=== PATIENT | male | born 1990 | race Hispanic/Latino ===

== ENCOUNTER 2024-10-31 04:44 | Emergency (ER) | payer BC, SELFPAY ==
[2024-10-31 04:46] VITALS: BP 150/108
[2024-10-31 05:06] VITALS: BMI 30.8
[2024-10-31 05:14] VITALS: BP 155/97
[2024-10-31] MEDS: DECADRON 10 MG PO (05:19)
--- NOTE | 2024-10-31 06:23 | ED.GENMED ---
History of Present Illness
<Dhruv Becker, DO - Last Filed: 10/31/24 07:08>
General
Chief Complaint: Allergic Reaction
Source: patient
Time Seen by Provider: 10/31/24 05:04
Nursing documentation reviewed up to this point in time: agreed with
History of Present Illness
History of Present Illness:
Note:
CHIEF COMPLAINT(S)
Sore throat and difficulty swallowing.
HISTORY OF PRESENT ILLNESS
The patient is a 34-year-old male who reports waking up with difficulty swallowing and subsequently noticing in the mirror that his uvula was swollen and had a red spot at the bottom. The patient describes the uvula as 'really swollen.� There were
no reports of coughing, respiratory distress, or significant pain, although the patient did express discomfort due to the swelling.
SOCIAL HISTORY
The patient reports smoking, although the specific type of smoking product and frequency was not detailed.
REVIEW OF SYSTEMS
- Throat: Sore throat, difficulty swallowing.
- Respiratory: Denied trouble breathing.
PHYSICAL EXAM
General: Alert, no acute distress.
Skin: Warm, dry.
Head: Normocephalic, atraumatic.
Neck: Supple, trachea midline.
Eye Ears, nose, mouth and throat: Oral mucosa moist. Uvula is swollen with a red spot at the bottom.
Cardiovascular: Normal peripheral perfusion, No edema.
Respiratory: Respirations are non-labored.
Gastrointestinal: Abdomen nondistended.
Back: Normal alignment, normal range of motion.
Musculoskeletal: Normal Range of Motion, normal strength.
Neurological: Alert and oriented to person, place, time, and situation, no focal neurological deficit observed.
Psychiatric: Cooperative, appropriate mood & affect.
PLAN
The plan is to administer steroids to reduce the swelling of the uvula and provide symptomatic relief for the patient.
DIFFERENTIAL DIAGNOSIS
The Differential Diagnosis includes, in no particular order and is not limited to:
- Viral pharyngitis
- Uvulitis
- Allergic reaction
- Bacterial pharyngitis
- Mononucleosis
- Peritonsillar abscess
- Epiglottitis
- GERD with throat involvement
- Upper respiratory tract infection
- Tonsillitis
Disposition:
SUMMARY OF ENCOUNTER
The patient is a 34-year-old male who presented to the emergency department with a swollen uvula, known as uvulitis. He reported no trauma, recent illness, chest pain, or shortness of breath. The management involved administering steroids to reduce
the swelling and provide symptomatic relief, given the absence of respiratory distress or significant pain.
ASSESSMENT
The patient is likely experiencing uvulitis without signs of a more severe underlying condition as he demonstrated no respiratory compromise or significant distress.
PLAN
The plan is to administer steroids to address the swollen uvula and monitor for symptomatic relief. Additional treatment or investigation may be considered if symptoms persist or escalate.
PATIENT EDUCATION AND COUNSELING
The patient was advised about the nature of uvulitis, the purpose of steroid treatment, and was informed to seek medical attention if symptoms worsen or if new symptoms develop, such as difficulty breathing or increased pain.
FOLLOW-UP INSTRUCTIONS
The patient is to follow up with their primary care provider for re-evaluation and further management if symptoms do not improve or worsen.
MEDICATION RECONCILIATION
The patient was prescribed steroids for uvulitis to be taken as directed to reduce uvular swelling.
MEDICAL DECISION MAKING
1. Number and Complexity of Problems Addressed: Infection affecting care with a focus on uvulitis and absence of other concerning symptoms.
2. Data:
- Category 1: No additional records or external data were reviewed.
3. Risk: Prescription medication, specifically steroids, was prescribed for outpatient management with instructions for follow-up care. The decision was made to manage the condition on an outpatient basis as the patient was stable and agreeable with
discharge.
DIAGNOSIS
- Uvulitis (ICD-10 code: J39.3)
Phy Exam
<Dhruv Becker DO - Last Filed: 10/31/24 07:08>
ENT Exam
ENT Exam: other (Large uvula consistent with uvulitis)
<Erwin Hernandez DO - Last Filed: 11/01/24 16:46>
Physical Exam
Physical Exam:
.
Course
<Dhruv Becker, DO - Last Filed: 10/31/24 07:08>
Orders/Labs/Results
Orders:
Orders
10/31/24 05:04
Dexamethasone Pf [Decadron] 10 mg PO NOW STA
10/31/24 06:24
Neck Soft Tissue [CR Soft Tissue Neck ] Urgent
Comment:
Reason For Exam: throat pain
10/31/24 06:36
Rapid Strep Group A Urgent
OPAL Source: Throat/Pharynx
Specimen Description:
Date Specimen was Collected: 10/31/24
Time Specimen was Collected: 06:34
10/31/24 07:54
Amoxicillin [Amoxil] 500 mg PO NOW STA
Vital Signs
Initial and Last Documented VS:
Initial Vital Signs
Temp Pulse Resp BP Pulse Ox
97.8 F 57 16 150/108 99
10/31/24 04:46 10/31/24 04:46 10/31/24 04:46 10/31/24 04:46 10/31/24 04:46
Last Documented Vital Signs
Temp Pulse Resp BP Pulse Ox
97.8 F 65 16 138/100 100
10/31/24 04:46 10/31/24 07:00 10/31/24 07:00 10/31/24 07:00 10/31/24 07:00
<Erwin Hernandez, DO - Last Filed: 11/01/24 16:46>
Orders/Labs/Results
Orders:
Orders
10/31/24 05:04
Dexamethasone Pf [Decadron] 10 mg PO NOW STA
10/31/24 06:24
Neck Soft Tissue [CR Soft Tissue Neck ] Urgent
Comment:
Reason For Exam: throat pain
10/31/24 06:36
Rapid Strep Group A Urgent
OPAL Source: Throat/Pharynx
Specimen Description:
Date Specimen was Collected: 10/31/24
Time Specimen was Collected: 06:34
10/31/24 07:54
Amoxicillin [Amoxil] 500 mg PO NOW STA
Vital Signs
Initial and Last Documented VS:
Initial Vital Signs
Temp Pulse Resp BP Pulse Ox
97.8 F 57 16 150/108 99
10/31/24 04:46 10/31/24 04:46 10/31/24 04:46 10/31/24 04:46 10/31/24 04:46
Last Documented Vital Signs
Temp Pulse Resp BP Pulse Ox
97.8 F 65 16 138/100 100
10/31/24 04:46 10/31/24 07:00 10/31/24 07:00 10/31/24 07:00 10/31/24 07:00
<Dhruv Becker DO - Last Filed: 10/31/24 07:08>
*Pulse Oximetry
SaO2: 99
Oxygen Mode of Delivery: Room air
Patient hypoxic: no
*Critical Care Note
Total Time (30-74mins, 75-104mins- exclusive of procedures): Not Applicable
<Erwin Hernandez DO - Last Filed: 11/01/24 16:46>
Update Note
Update Note:
Strep positive. Cover with antibiotics and outpatient management. On reassessment no stridor no drooling.
ED Attending Note
<Dhruv Becker DO - Last Filed: 10/31/24 07:08>
-
Portions of this chart may have been created with voice recognition software.� Occasional wrong word or��sound alike� substitutions may have occurred due to the inherent limitations of voice recognition software.
Discharge Plan
Departure
Patient Disposition: Home (Routine Discharge)
Date of Disposition: 10/31/24
Time of Disposition: 06:51
Patient with high blood pressure during this ER visit?: Yes
Discharge Problem:
Uvulitis
Instructions: BLOOD PRESSURE, Sore Throat - Adult
Prescriptions:
New
prednisone 50 mg tablet
50 mg PO DAILY Qty: 4 0RF
amoxicillin 500 mg capsule
500 mg PO BID Qty: 20 0RF
Referrals:
Brenda Maza MD [Active, Otology]
Activity Restrictions/Additional Instructions:
Thank You for choosing [facility].
It was a pleasure meeting you and taking part in your care. We hope for your continued healing and wellness.
Please read discharge instructions in their entirety. However, they are for general education and may not describe your exact diagnosis at discharge. Information on your ER visit and medical conditions were discussed with you along with appropriate
follow up information...
If indicated, please take your medications as instructed and indicated on discharge paperwork.
Please schedule a follow up appointment as directed. Call to schedule an appointment
Please return to the emergency department with ANY change in, persisting, or worsening of symptoms. If any of your symptoms do not improve, or persist, or become more severe within 6-12 hours, please return to the emergency department for further
care.
Please return to the emergency department if you develop a headache, neck pain/stiffness, fever greater than 100.4F, chest pain, shortness of breath, persistent nausea, vomiting, slurred speech, difficulty walking, numbness/tingling, weakness, signs
of infection or any other symptoms that are worrisome to you.
If you have any questions or concerns please do not hesitate to call the Hospital at or E-mail me directly at [email or web address]
Interventions
Interventions:
*Risk Screen - Suicide Last Done: 10/31/24 04:46
*General Assessment Last Done: 10/31/24 04:46
*Neglect/Abuse Screening Last Done: 10/31/24 04:46
*ED- Fall Risk Assessment Last Done: 10/31/24 05:15
*ED COVID-19 Vaccine History Last Done: 10/31/24 05:15
*Nursing Disposition Last Done: 10/31/24 08:38
ED- Cardiac Assessment Last Done: 10/31/24 05:15
ED- Pulmonary Assessment Last Done: 10/31/24 05:15
ED-Skin Assessment Last Done: 10/31/24 05:15
Discharge Date and Time
Discharge Date/Time: 10/31/24 08:38
Print Language: SWEDISH
[2024-10-31 07:00] VITALS: BP 138/100
[2024-10-31] MEDS: AMOXIL 500 MG PO (08:01)
== END 2024-10-31 08:38 | disposition home or self-care (01) ==
LOC: EMR 04:44
PROVIDERS: EMERGENCY PHYSICIAN Student in an Organized Health Care Education/Training Program
DX: R13.10 Dysphagia, unspecified (principal); K12.2 Cellulitis and abscess of mouth; R03.0 Elevated blood-pressure reading, without diagnosis of hypertension; E78.5 Hyperlipidemia, unspecified; F17.200 Nicotine dependence, unspecified, uncomplicated; Z91.018 Allergy to other foods
CPT/HCPCS: 99283; 70360; 87070; 87147; 87880